=== PATIENT | male | born 1995 | race Caucasian/White ===

== ENCOUNTER 2018-05-21 21:33 | Observation (INO) | payer OTHER ==
[2018-05-21] MEDS ORDERED: HALOPERIDOL LACT 5 MG/ML INJ IVP ONE (21:49)
--- NOTE | 2018-05-21 21:49 | EDPHY ---
H & P Stated Complaint: vomiting diarrhea x 2-3 hours Time Seen by Provider: 05/21/18 21:39 HPI/ROS: CHIEF COMPLAINT: Nausea vomiting diarrhea x3 hours HISTORY OF PRESENT ILLNESS: 22-year-old male history of anxiety complaining of 3 hr of nausea vomiting diarrhea, abdominal pain Denies international travel , antibiotic use, known sick contacts, untreated water sources. No melena hematochezia. Denies abdominal pain. Denies back or flank pain. Denies headache. Denies fever chills. Denies flu-like symptoms. Denies testicular pain REVIEW OF SYSTEMS: 10 systems reviewed and negative with the exception of the elements mentioned in the history of present illness PAST MEDICAL & SURGICAL HISTORY: no history of abdominal surgeries SOCIAL HISTORY: social alcohol use.. No marijuana use. No tobacco abuse PHYSICAL EXAM (Prior to examination, patient consented to physical exam, hands were washed and my usual and customary physical exam procedures followed) 1) GENERAL: Well-developed, well-nourished, alert and oriented. Appears anxious , retching loudly. 2) HEAD: Normocephalic, atraumatic 3) HEENT: Pupils equal, round, reactive to light bilaterally. Sclera anicteric. Nasopharynx, oropharynx, clear, no lesions. Dry mucous membranes. 4) NECK: Full range of motion, no meningeal signs. 5) LUNGS: Clear auscultation bilaterally, no wheezes, no rhonchi, no retractions. 6) HEART: Regular rate and rhythm, no murmur, no heave, no gallop. 7) ABDOMEN: No guarding, tender to palpation right lower quadrant, negative Miller's, negative Rovsing's, negative peritoneal sign, 8) MUSCULOSKELETAL: Moving all extremities, no focal areas of tenderness, no obvious trauma. No peripheral edema or discoloration. 9) BACK: No CVA tenderness, no midline vertebral tenderness, no fluctuance, no step-off, no obvious trauma, no visual or palpable abnormality. 10) SKIN: No rash, no petechiae. 11) Psychiatric: Patient is oriented X 3, there is no agitation. 12) : Normal male external genitalia bilateral testicles nontender, non high- riding, bilateral cremasteric reflex present and brisk DIFFERENTIAL DIAGNOSIS: My differential diagnosis includes, but is not limited to, acute appendicitis, acute cholecystitis, bowel obstruction, acute pancreatitis, testicular torsion, gastritis. The patient understands that this diagnosis is provisional and can never be 100% accurate. This is a partial list of diagnoses considered. These considerations are based on history, physical exam, past history and reassessment. - Medical/Surgical History Hx Asthma: No Hx Chronic Respiratory Disease: No Hx Diabetes: No Hx Cardiac Disease: No Hx Renal Disease: No Hx Cirrhosis: No Hx Alcoholism: No Hx HIV/AIDS: No Hx Splenectomy or Spleen Trauma: No Other PMH: vasovagal prone - Social History Smoking Status: Never smoked Constitutional: Initial Vital Signs Temperature (C) 36.5 C 05/21/18 21:36 Heart Rate 122 H 05/21/18 21:36 Respiratory Rate 24 H 05/21/18 21:36 Blood Pressure 99/72 L 05/21/18 21:36 O2 Sat (%) 100 05/21/18 21:36 O2 Delivery Mode Room Air Allergies/Adverse Reactions: No Known Allergies Allergy (Unverified 05/21/18 21:35) Home Medications: Medication Instructions Recorded NK [No Known Home Meds] 05/21/18 Medical Decision Making - Diagnostics Imaging Results: Imaging Impressions Abdomen CT 05/21/18 22:31 Impression: 1. Fluid-filled loops of large and small bowel suggestive of enteritis. 2. No CT evidence of appendicitis, abscess or bowel obstruction. Findings discussed with Taiwo Lazcano PAC at 23:25 hour, 05/21/2018. ED Course/Re-evaluation: 9:47 p.m.: Patient moaning and crying due to fear of needles not due to abdominal pain. Will obtain diagnostic studies, administer IV fluids, IV Haldol and re-evaluate. At this time his abdomen is flat, no guarding, no focal discomfort, negative McBurney's point pain. 10:32 p.m.: Re-evaluation. He has focal tenderness in the right lower quadrant , [place] [id number] imaging the abdomen and pelvis to evaluate possible appendicitis. Indications risks benefits discussed with patient he consents. Also noted to have elevated H&H more likely secondary to hemoconcentration. He is receiving IV hydration at this time. 11:29 p.m.: CT imaging interpreted by staff radiologist is negative for surgical abdominal pathology, showing diffuse enteritis. Patient remains tachycardic in the 120s after 2 L of IV fluids. Recommend admission for continued hydration. He is agreeable with this. Care of patient under supervision of secondary supervising physician Dr Munoz with whom I discussed case. 11:33 p.m.: Consultation with Dr. Fuller who will admit patient, requests stool sample as the patient notes diffuse diarrhea as well. - Data Points Laboratory Results: Laboratory Results 05/21/18 21:56 05/21/18 21:56 05/21/18 05/21/18 21:56 21:56 WBC 20.00 10^3/uL H 10^3/uL (3.80-9.50) RBC 6.07 10^6/uL 10^6/uL (4.40-6.38) Hgb 18.0 g/dL H g/dL (13.7-17.5) Hct 51.9 % H % (40.0-51.0) MCV 85.5 fL fL (81.5-99.8) MCH 29.7 pg pg (27.9-34.1) MCHC 34.7 g/dL g/dL (32.4-36.7) RDW 12.4 % % (11.5-15.2) Plt Count 354 10^3/uL 10^3/uL (150-400) MPV 10.0 fL fL (8.7-11.7) Neut % (Auto) 88.2 % H % (39.3-74.2) Lymph % (Auto) 2.9 % L % (15.0-45.0) [place] % (Auto) 7.8 % % (4.5-13.0) Eos % (Auto) 0.3 % L % (0.6-7.6) Baso % (Auto) 0.4 % % (0.3-1.7) Nucleat RBC Rel Count 0.0 % % (0.0-0.2) Absolute Neuts (auto) 17.66 10^3/uL H 10^3/uL (1.70-6.50) Absolute Lymphs (auto) 0.58 10^3/uL L 10^3/uL (1.00-3.00) Absolute Monos (auto) 1.55 10^3/uL H 10^3/uL (0.30-0.80) Absolute Eos (auto) 0.06 10^3/uL 10^3/uL (0.03-0.40) Absolute Basos (auto) 0.08 10^3/uL 10^3/uL (0.02-0.10) Absolute Nucleated RBC 0.00 10^3/uL 10^3/uL (0-0.01) Immature Gran % 0.4 % % (0.0-1.1) Immature Gran # 0.07 10^3/uL 10^3/uL (0.00-0.10) Platelet Estimate Not Reported Sodium 134 mEq/L L mEq/L (135-145) Potassium 4.1 mEq/L mEq/L (3.5-5.2) Chloride 103 mEq/L mEq/L (97-110) Carbon Dioxide 22 mEq/l mEq/l (22-31) Anion Gap 9 mEq/L mEq/L (6-14) BUN 17 mg/dL mg/dL (7-23) Creatinine 1.0 mg/dL mg/dL (0.7-1.3) Estimated GFR > 60 Glucose 146 mg/dL H mg/dL (70-100) Calcium 10.7 mg/dL H mg/dL (8.5-10.4) Phosphorus 2.0 mg/dL L mg/dL (2.5-4.5) Total Bilirubin 1.3 mg/dL mg/dL (0.1-1.4) Conjugated Bilirubin 0.4 mg/dL mg/dL (0.0-0.5) Unconjugated Bilirubin 0.9 mg/dL mg/dL (0.0-1.1) AST 34 IU/L IU/L (17-59) ALT 48 IU/L IU/L (21-72) Alkaline Phosphatase 105 IU/L IU/L (38-126) Total Protein 9.1 g/dL H g/dL (6.3-8.2) Albumin 5.4 g/dL H g/dL (3.5-5.0) Lipase 95 IU/L IU/L (23-300) Medications Given: Discontinued Medications Haloperidol Lactate (Haldol Injection) 2.5 mg IVP EDNOW ONE Stop: 05/21/18 21:50 Last Admin: 05/21/18 21:54 Dose: 2.5 mg Sodium Chloride (Ns) 1,000 mls @ 0 mls/hr IV EDNOW ONE; Wide Open PRN Reason: Protocol Stop: 05/21/18 21:45 Last Admin: 05/21/18 23:21 Dose: 1,000 mls Departure - Departure Disposition: [facility] Inpatient Acute Clinical Impression: Dehydration Vomiting alone Qualifiers: Vomiting type: unspecified Vomiting Intractability: non-intractable Qualified Code(s): R11.11 - Vomiting without nausea Condition: Good Additional Instructions: Return to the ER if you develop further episodes of vomiting, if you develop abdominal pain or any other symptoms that concern you
[2018-05-21] MEDS: NS 1,000 ML IV ONE ×2 (21:54→23:21)
[2018-05-21 22:08] LABS: PLATELET COUNT 354 10^3/uL (150-400)
[2018-05-21] MEDS ORDERED: NS 1,000 ML IV ONE (22:39)
[2018-05-21] MEDS ORDERED: IOPAMIDOL (ISOVUE-300) 100 ML BTL ONE (22:46)
[2018-05-21] MEDS ORDERED: ONDANSETRON 4 MG/2 ML VIAL IVP PRN (23:36)
[2018-05-21] MEDS ORDERED: PROMETHAZINE HCL 25 MG/ML INJ IVP PRN (23:36)
[2018-05-21] MEDS ORDERED: ONDANSETRON DISINTEGRATING 4 MG TAB PO PRN (23:36)
[2018-05-22] MEDS: NS 1,000 ML IV SCH ×2 (00:23→13:18)
[2018-05-22] MEDS: ACETAMINOPHEN 325 MG TAB PO PRN ×2 (00:27→08:32)
--- NOTE | 2018-05-22 00:28 | PDGENHP ---
History and Physical - Chief Complaint [place], diarrhea - History of Present Illness 22 yo M w/ no PMHx presents with vomiting and diarrhea. His symptoms started suddenly around 7 PM. He had [place] dinner with his girlfriend's family around 3 PM. The other people who ate the meal have no symptoms. He denies symptoms of recent illness or recent antibiotic use. He has not had similar symptoms in the past. He denies sick contacts. CT scan in the ED reveals only diffuse enteritis. He is being admitted for symptom management and rehydration. Case discussed with ED PA Brett Lazcano; records reviewed and summarized above. History Information - Allergies/Home Medication List Allergies/Adverse Reactions: No Known Allergies Allergy (Unverified 05/21/18 21:35) Home Medications: NK [No Known Home Meds] 05/21/18 [Last Taken Unknown] I have personally reviewed and updated: family history, medical history - Past Medical History no pertinent PMH - Surgical History Reports: no pertinent surgical hx - Family History Additional family history: Asked, denies - Social History Smoking Status: Never smoked Review of Systems Review of Systems: ROS: 10pt was reviewed & negative except for what was stated in HPI & below Physical Exam Physical Exam: Temp Pulse Resp BP Pulse Ox 36.8 C 109 H 18 121/68 H 94 05/22/18 00:00 05/22/18 00:00 05/22/18 00:00 05/22/18 00:00 05/22/18 00:00 Constitutional: appears nourished, uncomfortable Eyes: PERRL, EOMI Ears, Nose, Mouth, Throat: moist mucous membranes, no oral mucosal ulcers Cardiovascular: no murmur, rub, or gallop, tachycardia Respiratory: no respiratory distress, clear to auscultation Gastrointestinal: tenderness (Mild, diffuse), No guarding, No rebound, No distension Skin: warm, normal color Musculoskeletal: full muscle strength, no muscle tenderness Neurologic: AAOx3, CN II-XII Intact Psychiatric: interacting appropriately, not anxious Lab Data & Imaging Review 05/21/18 21:56 05/21/18 21:56 WBC 20.00 10^3/uL (3.80-9.50) H 05/21/18 21:56 RBC 6.07 10^6/uL (4.40-6.38) 05/21/18 21:56 Hgb 18.0 g/dL (13.7-17.5) H 05/21/18 21:56 Hct 51.9 % (40.0-51.0) H 05/21/18 21:56 MCV 85.5 fL (81.5-99.8) 05/21/18 21:56 MCH 29.7 pg (27.9-34.1) 05/21/18 21:56 MCHC 34.7 g/dL (32.4-36.7) 05/21/18 21:56 RDW 12.4 % (11.5-15.2) 05/21/18 21:56 Plt Count 354 10^3/uL (150-400) 05/21/18 21:56 MPV 10.0 fL (8.7-11.7) 05/21/18 21:56 Neut % (Auto) 88.2 % (39.3-74.2) H 05/21/18 21:56 Lymph % (Auto) 2.9 % (15.0-45.0) L 05/21/18 21:56 [place] % (Auto) 7.8 % (4.5-13.0) 05/21/18 21:56 Eos % (Auto) 0.3 % (0.6-7.6) L 05/21/18 21:56 Baso % (Auto) 0.4 % (0.3-1.7) 05/21/18 21:56 Nucleat RBC Rel Count 0.0 % (0.0-0.2) 05/21/18 21:56 Absolute Neuts (auto) 17.66 10^3/uL (1.70-6.50) H 05/21/18 21:56 Absolute Lymphs (auto) 0.58 10^3/uL (1.00-3.00) L 05/21/18 21:56 Absolute Monos (auto) 1.55 10^3/uL (0.30-0.80) H 05/21/18 21:56 Absolute Eos (auto) 0.06 10^3/uL (0.03-0.40) 05/21/18 21:56 Absolute Basos (auto) 0.08 10^3/uL (0.02-0.10) 05/21/18 21:56 Absolute Nucleated RBC 0.00 10^3/uL (0-0.01) 05/21/18 21:56 Immature Gran % 0.4 % (0.0-1.1) 05/21/18 21:56 Immature Gran # 0.07 10^3/uL (0.00-0.10) 05/21/18 21:56 Platelet Estimate Not Reported 05/21/18 21:56 Sodium 134 mEq/L (135-145) L 05/21/18 21:56 Potassium 4.1 mEq/L (3.5-5.2) 05/21/18 21:56 Chloride 103 mEq/L (97-110) 05/21/18 21:56 Carbon Dioxide 22 mEq/l (22-31) 05/21/18 21:56 Anion Gap 9 mEq/L (6-14) 05/21/18 21:56 BUN 17 mg/dL (7-23) 05/21/18 21:56 Creatinine 1.0 mg/dL (0.7-1.3) 05/21/18 21:56 Estimated GFR > 60 05/21/18 21:56 Glucose 146 mg/dL (70-100) H 05/21/18 21:56 Calcium 10.7 mg/dL (8.5-10.4) H 05/21/18 21:56 Phosphorus 2.0 mg/dL (2.5-4.5) L 05/21/18 21:56 Total Bilirubin 1.3 mg/dL (0.1-1.4) 05/21/18 21:56 Conjugated Bilirubin 0.4 mg/dL (0.0-0.5) 05/21/18 21:56 Unconjugated Bilirubin 0.9 mg/dL (0.0-1.1) 05/21/18 21:56 AST 34 IU/L (17-59) 05/21/18 21:56 ALT 48 IU/L (21-72) 05/21/18 21:56 Alkaline Phosphatase 105 IU/L (38-126) 05/21/18 21:56 Total Protein 9.1 g/dL (6.3-8.2) H 05/21/18 21:56 Albumin 5.4 g/dL (3.5-5.0) H 05/21/18 21:56 Lipase 95 IU/L (23-300) 05/21/18 21:56 Imaging Review: Imaging Impressions Abdomen CT 05/21/18 22:31 Impression: 1. Fluid-filled loops of large and small bowel suggestive of enteritis. 2. No CT evidence of appendicitis, abscess or bowel obstruction. Findings discussed with Taiwo Lazcano PAC at 23:25 hour, 05/21/2018. Assessment & Plan Assessment: 22 yo M presents with enteritis. Plan: 1. Enteritis - Presents with several hours of vomiting and diarrhea. Etiology could be viral vs. food poisoning. - Admit for observation - S/p 2 L IVF, continue mIVF overnight - Anti-emetics PRN - GI PCR ordered 2. Leukocytosis - Reactive from above. Monitor CBC. 3. Hyponatremia - 2/2 dehydration, monitor BMP after IVF. Diet - Clears, ADAT, mIVF Code - Full Ppx - Low risk, ambulate TID Dispo - Admit under observation status
[2018-05-22] MEDS ORDERED: NS 1,000 ML IV ONE (01:17)
[2018-05-22 08:10] LABS: PLATELET COUNT 215 10^3/uL (150-400)
--- NOTE | 2018-05-22 10:49 | ASMTCMCOM ---
CM Note CM Note Notes: Chart reviewed for discharge planning purposes 22 year old male with anxiety admitted via ED for c/o nausea and diarrhea. Stool panel reveals noro virus. No needs identified CM available should needs arise. Plan: Likely home independently when medicaly l cleared for discharge. Date Signed: 05/22/2018 10:44 AM Electronically Signed By:Sunitha Nair RN
[2018-05-22 12:30] VITALS: BP 108/49
--- NOTE | 2018-05-22 15:02 | ASMTCMCOM ---
CM Note CM Note Notes: Medically cleared for discharge to home. No needs. Date Signed: 05/22/2018 03:02 PM Electronically Signed By:Sunitha Nair RN
--- NOTE | 2018-05-22 15:04 | ASMTDCNOTE ---
Case Management Discharge Discharge Order Complete? Answers: Yes Patient to Obtain Answers: Other Medications Transportation Arranged Answers: Family/Friends Family Notified Answers: Yes Date Signed: 05/22/2018 03:04 PM Electronically Signed By:Sunitha Nair RN
--- NOTE | 2018-05-22 19:28 | PDDCSUM ---
Discharge Summary Discharge Summary: Date of Admission: May 21, 2018 Date of Discharge: May 22, 2018 Discharge Diagnoses: Acute gastroenteritis, improved Norovirus/Sapovirus infection Dehydration, resolved Leukocytosis, reactive Hyponatremia, resolved Admission Diagnoses: Enteritis Leukocytosis, reactive Hyponatremia Consultants: None. Hospital Course: The patient is a 22-year-old male who presented with vomiting and diarrhea that started around 7:00 p.m.. He had [place] dinner with his girlfriend family around 3:00 p.m.. No but he also experienced similar symptoms from the republican. He denies any sick contacts. He was found to be dehydrated and was rehydrated with IV fluids. Stool test revealed norovirus/sapovirus infection. Patient greatly improved by the next day and was discharged to home to continue recovering. Physical Exam: General: The patient is a male who is alert and in no acute distress. HEENT: normocephalic, extraocular movements intact, conjunctivae clear, no lesions on face. Nares and oral mucosa pink and moist. Neck: trachea midline, no visible masses, no external lesions. Resp: unlabored breathing. Abd: soft and nondistended. Musculoskeletal: Normal muscle tone and bulk. Neuro: cranial nerves II - XII grossly intact. Intact gross motor and sensory function. Psych: appropriate mood/affect. Skin: no pallor. Condition: Fair. Discharged to: Home. Pertinent tests/labs/imaging: Stool panel-norovirus, sapovirus. Sodium on admission 134. 139 on discharge. Medications: Please see med rec form. New meds: Zofran ODT 4 mg tabs take 1 tab three times daily as needed for nausea. Promethazine 25 mg suppositories take 1 suppository rectally twice daily as needed for nausea Special instructions: Return to ED if symptoms worsen. Patient was given a work excuse note for the next 2 days. Follow up: Follow up with the PCP.
== END 2018-05-22 15:00 | disposition home or self-care (01) ==
LOC: F1N 05-22 00:20
PROVIDERS: ADMIT Student in an Organized Health Care Education/Training Program; ATTEND Internal Medicine
DX: A08.11 Acute gastroenteropathy due to Norwalk agent (principal); E86.0 Dehydration; E87.1 Hypo-osmolality and hyponatremia; D72.829 Elevated white blood cell count, unspecified
CPT/HCPCS: 74177; 96360; 96361; 99285; G0378; J1630; J2405; J2550; Q9967